=== PATIENT | female | born 1945 | race African-American/Black ===

== ENCOUNTER 2017-01-31 02:31 | Emergency (ER) | payer MEDICARE, BC ==
[2017-01-31] MEDS ORDERED: Lisinopril 10 MG TAB ONE (03:18)
[2017-01-31 03:50] LABS: Anion Gap 16 mmol/L (10-20); BUN (Urea Nitrogen) 43 mg/dL (9.8-20.1); Calc. Creatinine Clearance 0 mL/min (70-130); Calcium 9.3 mg/dL (7.8-10.44); Carbon Dioxide 21 mmol/L (23-31); Chloride 105 mmol/L (98-107); Estimated GFR-MDRD 34
[2017-01-31 03:56] LABS: #Basophils 0.1 thou/uL (0.0-0.2); #Eosinphils 0.2 thou/uL (0.0-0.7); #Lymphocytes 1.7 thou/uL (1.20-3.40); #Monocytes 0.7 thou/uL (0.11-0.59); #Neutrophils 2.9 thou/uL (1.40-6.50); %Basophils 1.1 % (0.0-1.0); %Eosinophils 3.8 % (0.0-10.0); %Lymphocytes 29.6 % (21.0-51.0); %Monocytes 12.9 % (0.0-10.0); Hematocrit 35.5 % (36.0-47.0); Mean Platelet Volume 8.3 fL (7.4-10.4); Red Blood Cell (RBC) Count 4.03 mill/uL (4.20-5.40); White Blood Cell (WBC) Count 5.6 thou/uL (4.8-10.8)
== END 2017-01-31 06:55 | disposition home or self-care (01) ==
LOC: ERS 02:31
DX: E11.649 Type 2 diabetes mellitus with hypoglycemia without coma (principal); E78.5 Hyperlipidemia, unspecified; I10 Essential (primary) hypertension; Z79.4 Long term (current) use of insulin; Z79.899 Other long term (current) drug therapy
CPT/HCPCS: 36415; 36416; 80048; 85025; 99285

== ENCOUNTER 2018-03-29 00:08 | Emergency (ER) | payer MEDICARE, BC ==
[2018-03-29] MEDS ORDERED: cloNIDine 0.1 MG TAB ONE (00:56)
[2018-03-29 01:04] LABS: ALT (SGPT) 16 U/L (8-55); AST (SGOT) 23 U/L (5-34); Albumin 3.5 g/dL (3.4-4.8); Alkaline Phosphatase 165 U/L (40-150); Anion Gap 14 mmol/L (10-20); BUN (Urea Nitrogen) 31 mg/dL (9.8-20.1); Bilirubin, Total 0.3 mg/dL (0.2-1.2); Calc. Creatinine Clearance 0 mL/min (70-130); Calcium 8.9 mg/dL (7.8-10.44); Carbon Dioxide 23 mmol/L (23-31); Chloride 104 mmol/L (98-107); Estimated GFR-MDRD 37; Globulin 3.7 g/dL (2.4-3.5); Glucose 332 mg/dL (83-110); Potassium 4.6 mmol/L (3.5-5.1); Protein, Total 7.2 g/dL (6.0-8.3); Sodium 136 mmol/L (136-145)
== END 2018-03-29 02:10 | disposition home or self-care (01) ==
LOC: ERS 00:08
DX: T38.3X1A Poisoning by insulin and oral hypoglycemic [antidiabetic] drugs, accidental (unintentional), initial encounter (principal); E11.9 Type 2 diabetes mellitus without complications; E78.5 Hyperlipidemia, unspecified; I10 Essential (primary) hypertension; Z79.4 Long term (current) use of insulin; Z79.899 Other long term (current) drug therapy
CPT/HCPCS: 36415; 36416; 80053; 93005

== ENCOUNTER 2018-07-10 22:47 | Emergency (ER) | payer MEDICARE, BC ==
[2018-07-10 23:32] LABS: #Eosinphils 0.2 thou/uL (0.0-0.7); #Lymphocytes 1.3 thou/uL (1.20-3.40); #Monocytes 1.5 thou/uL (0.11-0.59); #Neutrophils 8.8 thou/uL (1.40-6.50); %Basophils 0.2 % (0.0-1.0); %Eosinophils 1.7 % (0.0-10.0); %Lymphocytes 10.9 % (21.0-51.0); %Monocytes 12.7 % (0.0-10.0); %Neutrophils 74.4 % (42.0-75.0); Hemoglobin 12.4 g/dL (12.0-16.0); Mean Corpuscular HGB CONC 33.1 g/dL (32.0-36.0); Mean Corpuscular Hemoglobin 29.1 pg (27.0-31.0); Mean Corpuscular Volume 87.9 fL (78.0-98.0); Mean Platelet Volume 7.5 fL (7.4-10.4); Platelet Count 353 thou/uL (130-400); RBC Distribution Width 12.3 % (11.5-14.5); Red Blood Cell (RBC) Count 4.27 mill/uL (4.20-5.40); White Blood Cell (WBC) Count 11.8 thou/uL (4.8-10.8)
[2018-07-11 00:02] LABS: ALT (SGPT) 16 U/L (8-55); AST (SGOT) 20 U/L (5-34); Albumin 3.4 g/dL (3.4-4.8); Alkaline Phosphatase 86 U/L (40-150); Anion Gap 14 mmol/L (10-20); BUN (Urea Nitrogen) 37 mg/dL (9.8-20.1); Bilirubin, Total 0.3 mg/dL (0.2-1.2); Calc. Creatinine Clearance 0 mL/min (70-130); Calcium 9.5 mg/dL (7.8-10.44); Carbon Dioxide 26 mmol/L (23-31); Chloride 99 mmol/L (98-107); Estimated GFR-MDRD 26; Globulin 4.2 g/dL (2.4-3.5); Glucose 312 mg/dL (83-110); Potassium 5.6 mmol/L (3.5-5.1); Protein, Total 7.6 g/dL (6.0-8.3); Sodium 133 mmol/L (136-145)
[2018-07-11] MEDS ORDERED: Furosemide 20 MG/2 ML VIAL ONE (01:30)
== END 2018-07-11 01:56 | disposition home or self-care (01) ==
LOC: ERS 22:47
DX: E87.5 Hyperkalemia (principal); E11.9 Type 2 diabetes mellitus without complications; E78.5 Hyperlipidemia, unspecified; I10 Essential (primary) hypertension; Z79.4 Long term (current) use of insulin
CPT/HCPCS: 80053; 85025; 93005; 96374; J1940

== ENCOUNTER 2024-06-08 02:01 | Emergency (ER) | payer MEDICARE, BC ==
[2024-06-08] MEDS ORDERED: Benzonatate 100 MG CAP ONE (04:18)
[2024-06-08] MEDS ORDERED: Acetaminophen 500 MG TAB ONE (04:19)
[2024-06-08 04:32] LABS: #Basophils Less than 0.03 10x3/uL (0.0-0.2); #Eosinophils Less than 0.03 10x3/uL (0.0-0.7); %Basophils 0.2 % (0.0-1.0); %Eosinophils 0.2 % (0.0-10.0); %Monocytes 8.1 % (0.0-10.0); %Neutrophils 81.6 % (42.0-75.0); Hematocrit 34.7 % (36.0-47.0); Hemoglobin 12.4 g/dL (12.0-16.0); Mean Corpuscular HGB CONC 35.7 g/dL (32.0-36.0); Mean Corpuscular Hemoglobin 28.2 pg (27.0-31.0); Mean Platelet Volume 10.9 fL (7.4-10.4); Platelet Count 218 10x3/uL (130-400); RBC Distribution Width 13.2 % (11.5-14.5); Red Blood Cell (RBC) Count 4.39 mill/uL (4.20-5.40)
[2024-06-08 04:46] LABS: ALT (SGPT) 7 U/L (Less than 34); AST (SGOT) 23 U/L (11-34); Albumin 2.5 g/dL (3.1-4.5); Alkaline Phosphatase 88 U/L (40-110); Anion Gap 14 mmol/L (10-20); BUN (Urea Nitrogen) 30 mg/dL (9.8-20.1); Bilirubin, Total 0.5 mg/dL (0.3-1.2); Calc. Creatinine Clearance 0 mL/min (70-130); Calcium 8.9 mg/dL (7.8-10.44); Carbon Dioxide 20 mmol/L (23-31); Chloride 103 mmol/L (98-107); Estimated GFR 40; Glucose 377 mg/dL (83-110); Protein, Total 7.5 g/dL (5.8-8.1); Sodium 132 mmol/L (136-145)
== END 2024-06-08 06:39 | disposition home or self-care (01) ==
LOC: ERS 02:01
DX: E11.65 Type 2 diabetes mellitus with hyperglycemia (principal); R05.9 Cough, unspecified; I10 Essential (primary) hypertension; Z79.4 Long term (current) use of insulin
CPT/HCPCS: 36415; 71045; 80053; 85025; 87428; 93005

== ENCOUNTER 2025-03-03 10:00 | Emergency (ER) | payer MEDICARE, BC ==
[2025-03-03] MEDS ORDERED: Acetaminophen 500 MG TAB ONE (10:46)
== END 2025-03-03 11:54 | disposition home or self-care (01) ==
LOC: ERS 10:00
DX: R07.89 Other chest pain (principal); E11.9 Type 2 diabetes mellitus without complications; I10 Essential (primary) hypertension; E78.00 Pure hypercholesterolemia, unspecified; Z79.82 Long term (current) use of aspirin; Z79.899 Other long term (current) drug therapy
CPT/HCPCS: 71046; 93005

== ENCOUNTER 2025-04-11 11:20 | Emergency (ER) | payer MEDICARE, BC ==
[2025-04-11] MEDS ORDERED: HYDROcodone/Acetaminophen 5/325 mg Tablet ONE (15:00)
== END 2025-04-11 15:04 | disposition home or self-care (01) ==
LOC: ERS 11:20
DX: S90.822A Blister (nonthermal), left foot, initial encounter (principal); S91.101A Unspecified open wound of right great toe without damage to nail, initial encounter; L03.116 Cellulitis of left lower limb; E11.40 Type 2 diabetes mellitus with diabetic neuropathy, unspecified; I10 Essential (primary) hypertension; X58.XXXA Exposure to other specified factors, initial encounter
CPT/HCPCS: 99282

== ENCOUNTER 2025-04-18 10:48 | Inpatient (IN) | payer MEDICARE, BC ==
[2025-04-18 14:08] LABS: #Basophils Less than 0.03 10x3/uL (0.0-0.2); #Eosinophils 0.15 10x3/uL (0.0-0.7); #Monocytes 0.72 10x3/uL (0.11-0.59); #Neutrophils 6.28 10x3/uL (1.40-6.50); %Basophils 0.2 % (0.0-1.0); %Eosinophils 1.8 % (0.0-10.0); %Lymphocytes 14.9 % (21.0-51.0); %Monocytes 8.5 % (0.0-10.0); %Neutrophils 74.2 % (42.0-75.0); Hematocrit 38.8 % (36.0-47.0); Hemoglobin 13.4 g/dL (12.0-16.0); Mean Corpuscular Hemoglobin 27.2 pg (27.0-31.0); Mean Corpuscular Volume 78.9 fL (78.0-98.0); Platelet Count 254 10x3/uL (130-400); Red Blood Cell (RBC) Count 4.92 mill/uL (4.20-5.40); White Blood Cell (WBC) Count 8.46 10x3/uL (4.8-10.8)
[2025-04-18 14:17] LABS: ALT (SGPT) 10 U/L (Less than 34); AST (SGOT) 15 U/L (11-34); Albumin 3.0 g/dL (3.1-4.5); Alkaline Phosphatase 120 U/L (40-110); Anion Gap 16 mmol/L (10-20); BUN (Urea Nitrogen) 36 mg/dL (9.8-20.1); Bilirubin, Total 0.2 mg/dL (0.3-1.2); Calc. Creatinine Clearance 0 mL/min (70-130); Calcium 9.1 mg/dL (7.8-10.44); Carbon Dioxide 25 mmol/L (23-31); Chloride 101 mmol/L (98-107); Globulin 4.6 g/dL (2.4-3.5); Glucose 328 mg/dL (83-110); Potassium 5.2 mmol/L (3.5-5.1); Sodium 137 mmol/L (136-145)
[2025-04-18] MEDS ORDERED: Dextrose 50% Abboject 50 ML SYRINGE ONE (16:02)
[2025-04-18] MEDS ORDERED: Glucagon 1 MG/ML KIT IM PRN (16:27)
[2025-04-18] MEDS ORDERED: Dextrose 50% Abboject 50 ML SYRINGE SLOW IVP PRN (16:27)
[2025-04-18] MEDS ORDERED: Vancomycin 1 GM/200 ML (FROZEN) BAG ONE (16:29)
[2025-04-18 18:13] VITALS: BMI 16.8
[2025-04-18] MEDS ORDERED: Vancomycin Dose by Levels Sliding Scale (Wt <71) FS SCH (18:30)
[2025-04-18] MEDS: LOKELMA 10 GM PACKET PO SCH (18:37)
[2025-04-18] MEDS ORDERED: Vancomycin 1 GM in Premix 1 BAG IVPB SCH (21:00)
[2025-04-19 04:02] LABS: #Basophils 0.03 10x3/uL (0.0-0.2); #Eosinophils 0.29 10x3/uL (0.0-0.7); #Monocytes 0.90 10x3/uL (0.11-0.59); #Neutrophils 4.57 10x3/uL (1.40-6.50); %Basophils 0.4 % (0.0-1.0); %Eosinophils 3.9 % (0.0-10.0); %Lymphocytes 21.2 % (21.0-51.0); %Monocytes 12.2 % (0.0-10.0); %Neutrophils 62.0 % (42.0-75.0); Hematocrit 34.5 % (36.0-47.0); Hemoglobin 11.6 g/dL (12.0-16.0); Mean Corpuscular Hemoglobin 27.0 pg (27.0-31.0); Mean Corpuscular Volume 80.4 fL (78.0-98.0); Platelet Count 269 10x3/uL (130-400); Red Blood Cell (RBC) Count 4.29 mill/uL (4.20-5.40); White Blood Cell (WBC) Count 7.37 10x3/uL (4.8-10.8)
[2025-04-19 04:20] LABS: INR-International Normal Ratio 1.1; PTT 36.0 sec (22.9-36.1); Prothrombin Time 14.1 sec (12.0-14.7)
[2025-04-19 04:34] LABS: ALT (SGPT) Less than 7 U/L (Less than 34); AST (SGOT) 13 U/L (11-34); Albumin 2.6 g/dL (3.1-4.5); Alkaline Phosphatase 79 U/L (40-110); Anion Gap 10 mmol/L (10-20); BUN (Urea Nitrogen) 29 mg/dL (9.8-20.1); Bilirubin, Total 0.3 mg/dL (0.3-1.2); Calc. Creatinine Clearance 23 mL/min (70-130); Calcium 9.1 mg/dL (7.8-10.44); Carbon Dioxide 27 mmol/L (23-31); Chloride 104 mmol/L (98-107); Globulin 4.4 g/dL (2.4-3.5); Glucose 247 mg/dL (83-110); Potassium 4.3 mmol/L (3.5-5.1); Sodium 137 mmol/L (136-145)
[2025-04-19 04:43] LABS: ALT (SGPT) Less than 7 U/L (Less than 34); AST (SGOT) 15 U/L (11-34); Albumin 2.6 g/dL (3.1-4.5); Alkaline Phosphatase 81 U/L (40-110); Bilirubin, Direct 0.2 mg/dL (0.1-0.3); Bilirubin, Total 0.3 mg/dL (0.3-1.2)
[2025-04-19] MEDS: Metoprolol Succinate XL 50 MG ER.TAB PO SCH (08:18)
[2025-04-19] MEDS: Mirtazapine 15 MG TAB PO SCH (08:19)
[2025-04-19] MEDS: Acetaminophen 325 MG TAB PO PRN (08:19)
[2025-04-19] MEDS ORDERED: Losartan 25 MG TAB PO SCH (09:00)
[2025-04-19 09:26] LABS: BUN (Urea Nitrogen) 25 mg/dL (9.8-20.1); Calc. Creatinine Clearance 26 mL/min (70-130); Calcium 9.4 mg/dL (7.8-10.44); Carbon Dioxide 25 mmol/L (23-31); Glucose 67 mg/dL (83-110)
[2025-04-19 10:21] LABS: Chloride 106 mmol/L (98-107); Potassium 4.3 mmol/L (3.5-5.1); Sodium 140 mmol/L (136-145)
[2025-04-19 10:26] LABS: Anion Gap 13 mmol/L (10-20)
[2025-04-19 14:51] LABS: Bacteria/HPF None Seen HPF (None Seen); Glucose, Urine (Dipstick) 200 mg/dL (Negative); Leukocyte 250 Leu/uL (Negative); Protein, Urine (Dipstick) 10 mg/dL (Neg-Trace); RBC/HPF 0-3 HPF (0-3); Specific Gravity, Urine 1.014 (1.002-1.036); WBC/HPF 21-50 HPF (0-3)
[2025-04-19 15:00] LABS: Sodium, Urine 77.0 mmol/L (Not Available)
[2025-04-19] MEDS: Ferrous Sulfate 325 MG TAB PO SCH (17:20)
[2025-04-19 17:29] LABS: Vancomycin, Trough 7.7 ug/mL
[2025-04-19] MEDS: Vancomycin 1 GM in Premix 1 BAG IVPB SCH (20:59)
[2025-04-19] MEDS: Sodium Bicarbonate Tab 325 MG TAB PO SCH (21:03)
[2025-04-20 03:59] LABS: Vancomycin, Trough 16.5 ug/mL
[2025-04-20 04:07] LABS: Calc. Creatinine Clearance 29.0 mL/min (70-130)
[2025-04-20] MEDS: Torsemide 20 MG TAB PO SCH (08:22)
[2025-04-20 08:48] LABS: #Basophils 0.05 10x3/uL (0.0-0.2); #Eosinophils 0.19 10x3/uL (0.0-0.7); #Monocytes 0.78 10x3/uL (0.11-0.59); #Neutrophils 4.91 10x3/uL (1.40-6.50); %Basophils 0.7 % (0.0-1.0); %Eosinophils 2.6 % (0.0-10.0); %Lymphocytes 19.1 % (21.0-51.0); %Monocytes 10.6 % (0.0-10.0); %Neutrophils 66.5 % (42.0-75.0); Hematocrit 34.4 % (36.0-47.0); Hemoglobin 11.9 g/dL (12.0-16.0); Mean Corpuscular Hemoglobin 27.5 pg (27.0-31.0); Mean Corpuscular Volume 79.4 fL (78.0-98.0); Platelet Count 284 10x3/uL (130-400); Red Blood Cell (RBC) Count 4.33 mill/uL (4.20-5.40); White Blood Cell (WBC) Count 7.38 10x3/uL (4.8-10.8)
[2025-04-20 09:05] LABS: Albumin 2.6 g/dL (3.1-4.5); Anion Gap 10 mmol/L (10-20); BUN (Urea Nitrogen) 23 mg/dL (9.8-20.1); BUN/Creatinine Ratio 20.72; Calc. Creatinine Clearance 32 mL/min (70-130); Calcium 9.0 mg/dL (7.8-10.44); Carbon Dioxide 25 mmol/L (23-31); Chloride 106 mmol/L (98-107); Glucose 161 mg/dL (83-110); Iron 71 ug/dL (50-170); Iron Binding Capacity, Total 155 mcg/dL (265-497); Potassium 4.3 mmol/L (3.5-5.1); Sodium 137 mmol/L (136-145)
[2025-04-20 15:05] VITALS: BMI 16.8
[2025-04-20] MEDS ORDERED: PROPOFOL 20 ML ONE (21:01)
[2025-04-20] MEDS ORDERED: fentaNYL PF 100 MCG/2 ML SYRINGE ONE (21:01)
[2025-04-20] MEDS ORDERED: Ondansetron PF 4 MG/2 ML Vial ONE (21:02)
[2025-04-20] MEDS ORDERED: Lidocaine 1% PF 5 ML VIAL ONE (21:02)
[2025-04-20] MEDS ORDERED: Lidocaine 2% 6 ML (Jelly) SYR ONE (21:02)
[2025-04-20] MEDS ORDERED: PROPOFOL 200 MG/20 ML VIAL ONE (21:32)
[2025-04-21 04:56] LABS: Albumin 2.6 g/dL (3.1-4.5); Anion Gap 6 mmol/L (10-20); BUN (Urea Nitrogen) 24 mg/dL (9.8-20.1); BUN/Creatinine Ratio 16.55; Calc. Creatinine Clearance 24 mL/min (70-130); Calcium 8.9 mg/dL (7.8-10.44); Carbon Dioxide 26 mmol/L (23-31); Chloride 103 mmol/L (98-107); Glucose 332 mg/dL (83-110); Potassium 4.3 mmol/L (3.5-5.1); Sodium 131 mmol/L (136-145)
[2025-04-21 05:05] LABS: #Basophils 0.04 10x3/uL (0.0-0.2); #Eosinophils 0.10 10x3/uL (0.0-0.7); #Monocytes 0.71 10x3/uL (0.11-0.59); #Neutrophils 5.51 10x3/uL (1.40-6.50); %Basophils 0.5 % (0.0-1.0); %Eosinophils 1.3 % (0.0-10.0); %Lymphocytes 16.0 % (21.0-51.0); %Monocytes 9.3 % (0.0-10.0); %Neutrophils 72.2 % (42.0-75.0); Hematocrit 34.6 % (36.0-47.0); Hemoglobin 11.7 g/dL (12.0-16.0); Mean Corpuscular Hemoglobin 27.3 pg (27.0-31.0); Mean Corpuscular Volume 80.7 fL (78.0-98.0); Platelet Count 306 10x3/uL (130-400); Red Blood Cell (RBC) Count 4.29 mill/uL (4.20-5.40); White Blood Cell (WBC) Count 7.63 10x3/uL (4.8-10.8)
[2025-04-21] MEDS: FLU (Fluad Triv) 25-26 (65UP)PF 45 MCG/0.5 ML Syringe IM ONE (08:45)
[2025-04-21 10:52] LABS: Vancomycin, Trough 10.8 ug/mL
[2025-04-21] MEDS: Insulin Glargine 30 UNITS/0.3 ML VIAL SC SCH (21:19)
[2025-04-22 06:59] LABS: #Basophils Less than 0.03 10x3/uL (0.0-0.2); #Eosinophils 0.21 10x3/uL (0.0-0.7); #Monocytes 0.93 10x3/uL (0.11-0.59); #Neutrophils 4.90 10x3/uL (1.40-6.50); %Basophils 0.3 % (0.0-1.0); %Eosinophils 2.8 % (0.0-10.0); %Lymphocytes 18.6 % (21.0-51.0); %Monocytes 12.4 % (0.0-10.0); %Neutrophils 65.4 % (42.0-75.0); Hematocrit 29.5 % (36.0-47.0); Hemoglobin 10.2 g/dL (12.0-16.0); Mean Corpuscular Hemoglobin 27.6 pg (27.0-31.0); Mean Corpuscular Volume 79.7 fL (78.0-98.0); Platelet Count 271 10x3/uL (130-400); Red Blood Cell (RBC) Count 3.70 mill/uL (4.20-5.40); White Blood Cell (WBC) Count 7.49 10x3/uL (4.8-10.8)
[2025-04-22 07:18] LABS: Albumin 2.4 g/dL (3.1-4.5); Anion Gap 5 mmol/L (10-20); BUN (Urea Nitrogen) 31 mg/dL (9.8-20.1); BUN/Creatinine Ratio 23.66; Calc. Creatinine Clearance 27 mL/min (70-130); Calcium 8.6 mg/dL (7.8-10.44); Carbon Dioxide 25 mmol/L (23-31); Chloride 110 mmol/L (98-107); Glucose 94 mg/dL (83-110); Potassium 4.2 mmol/L (3.5-5.1); Sodium 136 mmol/L (136-145)
[2025-04-22] MEDS: Aspirin 81 mg Enteric Coated Tablet PO SCH (11:08)
[2025-04-23 06:18] LABS: #Basophils 0.03 10x3/uL (0.0-0.2); #Eosinophils 0.22 10x3/uL (0.0-0.7); #Monocytes 0.88 10x3/uL (0.11-0.59); #Neutrophils 5.07 10x3/uL (1.40-6.50); %Basophils 0.4 % (0.0-1.0); %Eosinophils 2.9 % (0.0-10.0); %Lymphocytes 18.9 % (21.0-51.0); %Monocytes 11.5 % (0.0-10.0); %Neutrophils 66.0 % (42.0-75.0); Hematocrit 28.9 % (36.0-47.0); Hemoglobin 10.2 g/dL (12.0-16.0); Mean Corpuscular Hemoglobin 27.9 pg (27.0-31.0); Mean Corpuscular Volume 79.2 fL (78.0-98.0); Platelet Count 271 10x3/uL (130-400); Red Blood Cell (RBC) Count 3.65 mill/uL (4.20-5.40); White Blood Cell (WBC) Count 7.67 10x3/uL (4.8-10.8)
[2025-04-23 06:44] LABS: Albumin 2.3 g/dL (3.1-4.5); Anion Gap 8 mmol/L (10-20); BUN (Urea Nitrogen) 22 mg/dL (9.8-20.1); BUN/Creatinine Ratio 21.57; Calc. Creatinine Clearance 34 mL/min (70-130); Calcium 8.6 mg/dL (7.8-10.44); Carbon Dioxide 26 mmol/L (23-31); Chloride 106 mmol/L (98-107); Glucose 149 mg/dL (83-110); Potassium 4.4 mmol/L (3.5-5.1); Sodium 136 mmol/L (136-145)
[2025-04-24 10:08] LABS: Albumin 2.7 g/dL (3.1-4.5); Anion Gap 4 mmol/L (10-20); BUN (Urea Nitrogen) 21 mg/dL (9.8-20.1); BUN/Creatinine Ratio 20.00; Calc. Creatinine Clearance 33 mL/min (70-130); Calcium 9.0 mg/dL (7.8-10.44); Carbon Dioxide 26 mmol/L (23-31); Chloride 107 mmol/L (98-107); Glucose 76 mg/dL (83-110); Potassium 4.8 mmol/L (3.5-5.1); Sodium 132 mmol/L (136-145)
[2025-04-24] MEDS: Dapagliflozin Propanediol 10 MG TAB PO SCH (14:41)
[2025-04-25 07:57] LABS: Albumin 2.4 g/dL (3.1-4.5); Anion Gap 7 mmol/L (10-20); BUN (Urea Nitrogen) 26 mg/dL (9.8-20.1); BUN/Creatinine Ratio 22.81; Calc. Creatinine Clearance 31 mL/min (70-130); Calcium 8.8 mg/dL (7.8-10.44); Carbon Dioxide 27 mmol/L (23-31); Chloride 106 mmol/L (98-107); Glucose 115 mg/dL (83-110); Potassium 5.0 mmol/L (3.5-5.1); Sodium 135 mmol/L (136-145)
[2025-04-25 08:18] VITALS: BP 184/74; TEMP 98.7
[2025-04-25] MEDS: Insulin Glargine 30 UNITS/0.3 ML VIAL SC SCH (09:24)
[2025-04-25] MEDS: NIFEdipine XL 60 MG ER.TAB PO SCH (09:24)
[2025-04-25] MEDS: Dapagliflozin Propanediol 10 MG TAB PO SCH (09:24)
== END 2025-04-25 16:03 | disposition home or self-care (01) | DRG 256 ==
LOC: SUATTDRO 10:48 → ERS 10:48 → PCU 15:34 → 2NO 04-20 10:35 → T4-B 04-21 16:15
PROVIDERS: ADMIT Family Medicine; ATTEND Internal Medicine
PROC: 0Y6Q0Z1 Detachment at Left 1st Toe, High, Open Approach (ICD-10-PCS; principal; 2025-04-20)
DX: E11.52 Type 2 diabetes mellitus with diabetic peripheral angiopathy with gangrene (principal); E87.1 Hypo-osmolality and hyponatremia; M86.172 Other acute osteomyelitis, left ankle and foot; I96 Gangrene, not elsewhere classified; N17.9 Acute kidney failure, unspecified; E11.69 Type 2 diabetes mellitus with other specified complication; E78.00 Pure hypercholesterolemia, unspecified; I25.10 Atherosclerotic heart disease of native coronary artery without angina pectoris; D63.1 Anemia in chronic kidney disease; I11.0 Hypertensive heart disease with heart failure; E87.5 Hyperkalemia; N18.30 Chronic kidney disease, stage 3 unspecified; Z79.899 Other long term (current) drug therapy
CPT/HCPCS: 36415; 36416; 76014; 80053; 80069; 80202; 81001; 82043; 82565; 82728; 83036; 83540; 83550; 84300; 85025; 85610; 85730; 86141; 86850; 86900; 86901; 87040; 87081; 88305; 88311; 93005; 93923; 96365; 96374; 96375; 97139; J0665; J0692; J1815; J2405; J2543; J2704; J3010; J3373; J7030; J7042; J7050; J7120; J7999

== ENCOUNTER 2025-05-02 14:02 | Outpatient (CLI) | payer MEDICARE, BC ==
[2025-05-02 14:44] LABS: #Basophils 0.04 10x3/uL (0.0-0.2); #Eosinophils 0.10 10x3/uL (0.0-0.7); #Monocytes 0.75 10x3/uL (0.11-0.59); #Neutrophils 6.67 10x3/uL (1.40-6.50); %Basophils 0.5 % (0.0-1.0); %Eosinophils 1.1 % (0.0-10.0); %Lymphocytes 14.2 % (21.0-51.0); %Monocytes 8.5 % (0.0-10.0); %Neutrophils 75.4 % (42.0-75.0); Hematocrit 31.7 % (36.0-47.0); Hemoglobin 10.7 g/dL (12.0-16.0); Mean Corpuscular Hemoglobin 27.3 pg (27.0-31.0); Mean Corpuscular Volume 80.9 fL (78.0-98.0); Platelet Count 329 10x3/uL (130-400); Red Blood Cell (RBC) Count 3.92 mill/uL (4.20-5.40); White Blood Cell (WBC) Count 8.85 10x3/uL (4.8-10.8)
[2025-05-02 15:04] LABS: Anion Gap 13 mmol/L (10-20); BUN (Urea Nitrogen) 43 mg/dL (9.8-20.1); Calc. Creatinine Clearance 0 mL/min (70-130); Calcium 8.9 mg/dL (7.8-10.44); Carbon Dioxide 27 mmol/L (23-31); Chloride 99 mmol/L (98-107); Glucose 317 mg/dL (83-110); Potassium 5.3 mmol/L (3.5-5.1); Sodium 134 mmol/L (136-145)
== END 2025-05-02 14:03 | disposition home or self-care (01) ==
LOC: LABBT 14:02
PROVIDERS: ATTEND Thoracic Surgery (Cardiothoracic Vascular Surgery)
DX: Z01.812 Encounter for preprocedural laboratory examination (principal); I73.9 Peripheral vascular disease, unspecified
CPT/HCPCS: 80048; 85025

== ENCOUNTER 2025-05-03 08:46 | Day surgery (SDC) | payer MEDICARE, BC ==
[2025-05-02 14:16] VITALS: BMI 17.0
[2025-05-03] MEDS ORDERED: Heparin 10,000 UNITS/ 10 ML VIAL ONE (08:56)
[2025-05-03] MEDS ORDERED: Lidocaine 1% (PF) 30 ML VIAL ONE ×2 (08:57→11:59)
[2025-05-03] MEDS ORDERED: hydrALAZINE 20 MG/ML VIAL ONE (09:58)
[2025-05-03] MEDS ORDERED: Iopamidol 370 76% 100 ML VIAL ONE (12:56)
== END 2025-05-03 13:45 | disposition home or self-care (01) ==
LOC: SDC 08:46
PROVIDERS: ATTEND Thoracic Surgery (Cardiothoracic Vascular Surgery)
PROC: B40GYZZ Plain Radiography of Left Lower Extremity Arteries using Other Contrast (ICD-10-PCS; principal; 2025-05-03)
DX: E11.51 Type 2 diabetes mellitus with diabetic peripheral angiopathy without gangrene (principal); I10 Essential (primary) hypertension; I25.10 Atherosclerotic heart disease of native coronary artery without angina pectoris; E78.2 Mixed hyperlipidemia; Z95.1 Presence of aortocoronary bypass graft; Z90.710 Acquired absence of both cervix and uterus; Z88.5 Allergy status to narcotic agent; Z79.82 Long term (current) use of aspirin; Z79.84 Long term (current) use of oral hypoglycemic drugs; Z79.899 Other long term (current) drug therapy
CPT/HCPCS: 36217; 75625; 75710; C1760; C1769 ×3; C1887 ×3; C1894 ×2; J0360; J2003; J3010; 36247; 75774; J1644; J2250; Q9967